=== PATIENT | male | born 1970 | race Hispanic/Latino ===

== ENCOUNTER 2017-10-12 16:47 | Inpatient (IN) | payer BC ==
--- NOTE | 2017-10-12 18:54 | CP.PCM.CON ---
History of Present Illness - History of Present Illness History of Present Illness: Infectious Disease Consultation: October 12, 2017 47 yo male initially seen in wound care center with Dr. Wright this afternoon and sent the patient for admission through the ER (patient did go home first to bring his car home and pack a few clothes and essentials). Concerns for left big toe erythema with increasing leukocytosis, increasing inflammatory numbers, and positive wound cultures. Patient was on PO Augmentin for 2 days. Left heel ulcer started about 2 weeks ago. The patient was seen by Dipak Healy MD but has not seen any doctors since Dr. Healy left the area about 1 1/2 years ago. He states that he still receives his medications by mail order however. He states that he takes insulin by injection of 30+ units taken before meals. He states his glucose levels are never less than 200. 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 Allergies: NKDA Social Hx: No tobacco History of EtOH use History of Heroin Abuse. Active Medications Acetaminophen (Tylenol 325mg Tab) 650 mg PO Q4H PRN PRN Reason: Fever >100.5 F Sodium Chloride (Sodium Chloride 0.9%) 1,000 mls @ 100 mls/hr IV .Q10H STA Stop: 10/13/17 07:53 Last Admin: 10/13/17 01:32 Dose: 100 mls/hr Family Hx: none given ROS: No fevers, chills, nausea, vomiting, diarrhea, headaches, dizziness, chest pain , abdominal pain, melena, hematuria, hematemesis, hematocheia, depression, anxiety. Meds Allergies/Adverse Reactions: Allergies Allergy/AdvReac Type Severity Reaction Status Date / Time No Known Allergies Allergy Verified 10/12/17 18:47 Physical Exam - Constitutional Appears: Non-toxic, No Acute Distress, Chronically Ill Additional comments: morbidly obese. - Head Exam Head Exam: ATRAUMATIC, NORMOCEPHALIC - Eye Exam Eye Exam: EOMI, PERRL Pupil Exam: NORMAL ACCOMODATION, PERRL - ENT Exam ENT Exam: Mucous Membranes Moist, Normal External Ear Exam, TM's Normal Bilaterally - Neck Exam Neck exam: Positive for: Full Rom, Normal Inspection - Respiratory Exam Respiratory Exam: Clear to Auscultation Bilateral, NORMAL BREATHING PATTERN. absent: Rales, Rhonchi, Wheezes - Cardiovascular Exam Cardiovascular Exam: REGULAR RHYTHM, RRR, +S1, +S2 - GI/Abdominal Exam GI & Abdominal Exam: Normal Bowel Sounds, Soft. absent: Distended, Tenderness - Extremities Exam Additional comments: left big toe with avulsion of nail. ulcer at tip of big toe. ulceration at left heel at least stage 3. - Neurological Exam Neurological exam: Alert, CN II-XII Intact, Oriented x3 - Psychiatric Exam Psychiatric exam: Normal Affect, Normal Mood - Skin Skin Exam: Intact, Normal Color Results - Labs Result Diagrams: 10/12/17 20:30 10/12/17 20:30 Assessment & Plan - Assessment and Plan (Free Text) Assessment: 47 yo male with erythema and worsening ulceration of the left big toe and to lesser extent left heel. Concerns for uncontrolled DM. Increasing inflammatory values from outpatient labs (ESR greater than 70 now) and moderate leukocytosis. Start IV Vancomycin and Zosyn for now. Closely monitor renal function. Periodic monitoring of ESR. Patient needs tighter control of diabetes mellitus. Check Hgb A1c as well. Wound care as per Dr. Wright. Thank you for allowing me to participate in the care of the patient, we will follow with you.
--- NOTE | 2017-10-12 19:36 | ED PDOC ---
Arrival/HPI <Nicholas Barone - Last Filed: 10/12/17 19:50> - General Historian: Patient - History of Present Illness Time/Duration: Other (see hpi) Context: Home <Mikayla Horner - Last Filed: 10/18/17 00:41> - General Chief Complaint: Lower Extremity Problem/Injury Time Seen by Provider: 10/12/17 19:11 - History of Present Illness Narrative History of Present Illness (Text): 10/12/17 19:33 This 47 yo male with pmh DM, presents to this ED c/o left great toe infection for a couple of days. Patient stated he developed an heel ulcer x 2 weeks ago. He also stated his toe nail came off yesterday. Patient was seen by Dr. Wright and Dr. Rocha, who recommended patient to be admitted in this hospital for IV antibiotic. Patient had been taking Augmentin x 2 days. Patient also noted his blood test was abnormal. He denies fever, or recent trauma. Patient denies other complains. (Mikayla Horner) Past Medical History - Provider Review Nursing Documentation Reviewed: Yes - Cardiac Hx Cardiac Disorders: No - Pulmonary Hx Respiratory Disorders: No - Neurological Hx Neurological Disorder: No - HEENT Hx HEENT Disorder: No - Renal Hx Renal Disorder: No - Endocrine/Metabolic Hx Endocrine Disorders: Yes Hx Diabetes Mellitus Type 2: Yes - Hematological/Oncological Hx Blood Disorders: No - Integumentary Hx Dermatological Disorder: No - Musculoskeletal/Rheumatological Hx Musculoskeletal Disorders: No - Gastrointestinal Hx Gastrointestinal Disorders: No - Genitourinary/Gynecological Hx Genitourinary Disorders: No - Psychiatric Hx Psychophysiologic Disorder: No Hx Substance Use: Yes (heroin) - Surgical History Hx Amputation: Yes (left index finger) <Mikayla Horner - Last Filed: 10/18/17 00:41> Family/Social History - Physician Review Nursing Documentation Reviewed: Yes Family/Social History: Other (noncontributory) Smoking Status: Never Smoked Hx Alcohol Use: Yes Frequency of alcohol use: Socially Hx Substance Use: Yes (heroin) <Mikayla Horner - Last Filed: 10/18/17 00:41> Allergies/Home Meds <Nicholas Barone - Last Filed: 10/12/17 19:50> <Horner,Nahim P - Last Filed: 10/18/17 00:41> Allergies/Adverse Reactions: Allergies No Known Allergies Allergy (Verified 10/12/17 18:47) Home Medications: Home Meds Medication Instructions Recorded Confirmed Empagliflozin [Jardiance] 25 mg PO DAILY 10/12/17 10/12/17 Insulin Detemir [Levemir] 45 unit SC DAILY 10/12/17 10/13/17 Sitagliptin Phos/Metformin HCl 1 each PO BID 10/12/17 10/13/17 [Janumet 50-1,000 mg Tablet] Review of Systems - Review of Systems Constitutional: Normal. absent: Fatigue, Weight Change, Fevers Eyes: Normal ENT: Normal Respiratory: Normal. absent: SOB, Cough Cardiovascular: Normal Gastrointestinal: Normal Genitourinary Male: Normal Musculoskeletal: Other (see hpi) Skin: Normal Neurological: Normal Endocrine: Normal Hemo/Lymphatic: Normal Psychiatric: Normal <Horner,Nahim P - Last Filed: 10/18/17 00:41> Physical Exam Temperature: Afebrile Blood Pressure: Normal Pulse: Regular Respiratory Rate: Normal Appearance: Positive for: Well-Appearing, Non-Toxic, Comfortable Pain Distress: None Mental Status: Positive for: Alert and Oriented X 3 - Systems Exam Head: Present: Atraumatic, Normocephalic Pupils: Present: PERRL Extroacular Muscles: Present: EOMI Conjunctiva: Present: Normal Mouth: Present: Moist Mucous Membranes Respiratory/Chest: Present: Clear to Auscultation, Good Air Exchange Cardiovascular: Present: Regular Rate and Rhythm, Normal S1, S2. No: Murmurs Abdomen: Present: Other (obese). No: Tenderness Back: Present: Normal Inspection Upper Extremity: Present: Normal Inspection, Normal ROM. No: Edema Lower Extremity: Present: Capillary Refill < 2 s, Other ((+) diabetic ulcer noted at base of left heel. no surrounding erythema. (+) left great toe nail plate surounding erythema, and ulcer at tip of left great toe.). No: Edema, CALF TENDERNESS Neurological: Present: GCS=15, CN II-XII Intact, Speech Normal, Motor Func Grossly Intact Skin: Present: Warm, Dry, Normal Color. No: Rashes Psychiatric: Present: Alert, Oriented x 3, Normal Insight, Normal Concentration <Horner,Nahim P - Last Filed: 10/18/17 00:41> Vital Signs Temp Pulse Resp BP Pulse Ox 10/12/17 22:45 98.4 F 80 20 132/90 96 10/12/17 18:41 97.9 F 84 18 108/72 96 Medical Decision Making <Nicholas Barone - Last Filed: 10/12/17 19:50> Re-evaluation Time: 21:35 Reassessment Condition: Re-examined, Improving,but remains with symptoms - Lab Interpretations I have reviewed the lab results: Yes Interpretation: Abnormal lab values - EKG Interpretation Interpreted by ED Physician: Yes (NSR @ [address] changes) Type: 12 lead EKG Comparison: No previous EKG avail. <Mikayla Horner - Last Filed: 10/18/17 00:41> ED Course and Treatment: 10/12/17 21:[address] King, who is covering for Dr. Darren ya. He reviewed labs, physical exam, VS. He agrees with plan for admission. He stated to admits under Dr. Banks. (Mikayla Horner) - Lab Interpretations Microbiology Results: Microbiology Results 10/12/17 20:30 Blood Blood Culture - Final NO GROWTH AFTER 5 DAYS 10/12/17 20:30 Blood Gram Stain - Final TEST NOT PERFORMED 10/12/17 19:30 Blood Blood Culture - Final NO GROWTH AFTER 5 DAYS 10/12/17 19:30 Blood Gram Stain - Final TEST NOT PERFORMED Lab Results: 10/12/17 20:30 10/12/17 20:30 Lab Results 10/12/17 20:30: pO2 51, VBG pH 7.38, VBG pCO2 50.0, VBG HCO3 29.6 H, VBG Total CO2 31.1 H, VBG O2 Sat (Calc) 88.6 H, VBG Base Excess 3.4 H, VBG Potassium 4.0, Sodium 139.0, Chloride 103.0, Glucose 106, Lactate 1.1, FiO2 21.0, Venous Blood Potassium 4.0 10/12/17 20:30: Sodium 140, Chloride 102, Potassium 3.8, Carbon Dioxide 28, Anion Gap 15, BUN 14, Creatinine 0.7 L, Est GFR ( Amer) > 60, Est GFR ( Non-Af Amer) > 60, Random Glucose 105, Calcium 10.2, Total Bilirubin 1.0, AST 38 , ALT 31, Alkaline Phosphatase 80, Total Protein 8.9 H, Albumin 4.4, Globulin 4.5, Albumin/Globulin Ratio 1.0 L 10/12/17 20:30: PT 12.9 H, INR 1.13 H, APTT 32.9 10/12/17 20:30: WBC 13.3 H, RBC 4.88, Hgb 13.8 L, Hct 42.7, MCV 87.5, MCH 28.3, MCHC 32.3, RDW 14.7 H, Plt Count 337, MPV 9.6, Gran % 71.8 H, Lymph % (Auto) 22.9, [place] % (Auto) 4.1, Eos % (Auto) 1.0 L, Baso % (Auto) 0.2, Gran # 9.56 H, Lymph # 3.0, [place] # 0.6, Eos # 0.1, Baso # 0.02 - RAD Interpretation Narrative RAD Interpretations (Text): 10/12/17 22:40 Chest x-rays: NAD (Mikayla Horner) Radiology Orders: 10/12/17 19:30 CHEST PORTABLE [RAD] Stat 10/12/17 19:32 FOOT LEFT 3 VIEWS ROUTINE [RAD] Stat - Medication Orders Current Medication Orders: Discontinued Medications Acetaminophen (Tylenol 325mg Tab) 650 mg PO Q4H PRN PRN Reason: Fever >100.5 F Home Med (Home Med) 1 unit PO DAILY ANDREW Last Admin: 10/14/17 09:05 Dose: 1 unit Piperacillin Sod/Tazobactam Sod (Zosyn 3.375 In Ns 100ml) 100 mls @ 200 mls/hr IVPB Q6 ANDREW PRN Reason: Protocol Stop: 10/13/17 00:29 Last Admin: 10/13/17 00:28 Dose: 200 mls/hr eMAR Start Stop Document 10/13/17 00:28 EVELIA (Rec: 10/13/17 00:29 EVELIA [id number]) Intravenous Solution Start Date 10/13/17 Start Time 00:28 End Date 10/13/17 End time 00:58 Total Infusion Time 30 Sodium Chloride (Sodium Chloride 0.9%) 1,000 mls @ 100 mls/hr IV .Q10H STA Stop: 10/13/17 07:53 Last Admin: 10/13/17 01:32 Dose: 100 mls/hr Comments: PREVIOUS IV DISCARDED & NEW TUBING APPLIED eMAR Start Stop Document 10/13/17 01:32 KTB (Rec: 10/13/17 01:33 KTB [id number]) Intravenous Solution Start Date 10/13/17 Start Time 01:32 Piperacillin Sod/Tazobactam Sod (Zosyn 3.375 In Ns 100ml) 100 mls @ 200 mls/hr IVPB Q6 ANDREW PRN Reason: Protocol Last Admin: 10/14/17 13:33 Dose: 200 mls/hr eMAR Start Stop Document 10/14/17 13:33 BIR (Rec: 10/14/17 13:33 BIR [id number]) Intravenous Solution Start Date 10/14/17 Start Time 13:33 End Date 10/14/17 End time 14:00 Total Infusion Time 27 Vancomycin HCl 1.5 gm/ Sodium (Chloride) 250 mls @ 167 mls/hr IVPB Q12H ANDREW PRN Reason: Protocol Last Admin: 10/13/17 03:56 Dose: 167 mls/hr eMAR Start Stop Document 10/13/17 03:56 KTB (Rec: 10/13/17 04:03 KTB [id number]) Intravenous Solution Start Date 10/13/17 Start Time 04:03 End Date 10/13/17 End time 05:33 Total Infusion Time 90 Vancomycin HCl 1.5 gm/ Sodium (Chloride) 500 mls @ 167 mls/hr IVPB Q12H ANDREW PRN Reason: Protocol Last Admin: 10/14/17 09:08 Dose: 167 mls/hr eMAR Start Stop Document 10/14/17 09:08 BIR (Rec: 10/14/17 09:08 [facility] [id number]) Intravenous Solution Start Date 10/14/17 Start Time 09:08 End Date 10/14/17 End time 12:30 Total Infusion Time 202 Cefepime HCl (Maxipime 1gm) 1 gm in 100 mls @ 100 mls/hr IVPB Q12 ANDREW PRN Reason: Protocol Last Admin: 10/14/17 21:26 Dose: 100 mls/hr eMAR Start Stop Document 10/14/17 21:26 ISAAC (Rec: 10/14/17 21:26 ISAAC [id number]) Intravenous Solution Start Date 10/14/17 Start Time 21:26 End Date 10/14/17 End time 22:26 Total Infusion Time 60 Insulin Detemir (Levemir) 45 unit SC DAILY [facility] Last Admin: 10/14/17 09:06 Dose: 45 unit MAR Blood Glucose Document 10/14/17 09:06 [facility] (Rec: 10/14/17 09:07 [facility] [id number]) Blood Glucose Finger Stick Blood Glucose (70-120) 135 Subcutaneous Administrations Document 10/14/17 09:06 [facility] (Rec: 10/14/17 09:07 [facility] [id number]) Charges for Administration # of Subcutaneous Administrations 1 Insulin Human Regular (Humulin R Med) 0 units SC [facility] PRN Reason: Protocol Last Admin: 10/15/17 07:45 Dose: Not Given Non-Admin Reason: Blood Sugar Parameter [facility] Blood Glucose Document 10/15/17 07:45 SML (Rec: 10/15/17 07:45 [facility] [id number]) Blood Glucose Finger Stick Blood Glucose (70-120) 123 Metformin HCl (Glucophage) 1,000 mg PO BID [facility] Last Admin: 10/14/17 17:35 Dose: 1,000 mg Non-Formulary Medication (Sitagliptin Phos/Metformin Hcl [Janumet 50-1,000 Mg Tablet]) 1 each PO BID [facility] Non-Formulary Medication (Empagliflozin [Jardiance]) 25 mg PO DAILY [facility] Last Admin: 10/13/17 09:23 Dose: Pneumococcal Polyvalent Vaccine (Pneumovax 23 Vaccine) 0.5 ml IM .ONCE ONE Stop: 10/13/17 03:20 Sitagliptin Phosphate (Januvia) 50 mg PO BID [facility] Last Admin: 10/14/17 17:35 Dose: 50 mg - PA / CONE TENDER / Resident Statement / has reviewed & agrees with the documentation as recorded. / has examined the patient and agrees with the treatment plan. <Nicholas Barone - Last Filed: 10/12/17 19:50> Disposition/Present on Arrival <Nicholas Barone - Last Filed: 10/12/17 19:50> - Present on Arrival Any Indicators Present on Arrival: No History of DVT/PE: No History of Uncontrolled Diabetes: No Urinary Catheter: No History of Decub. Ulcer: No History Surgical Site Infection Following: None - Disposition Have Diagnosis and Disposition been Completed?: Yes Disposition Time: 21:52 Patient Plan: Admission <Mikayla Horner - Last Filed: 10/18/17 00:41> - Disposition Diagnosis: Cellulitis, Failure of outpatient treatment Disposition: HOSPITALIZED Condition: STABLE
[2017-10-12] MEDS: Piperacillin/Tazobact 3.375 gm 100 ML IVPB SCH (20:30)
[2017-10-12 21:05] LABS: INR 1.13 (0.93-1.08); PARTIAL THROMBOPLASTIN TIME 32.9 Seconds (25.1-36.5); PROTHROMBIN TIME 12.9 SECONDS (9.4-12.5); VENOUS BLOOD GAS BASE EXCESS 3.4 mmol/L (0.0-2.0); VENOUS BLOOD GAS PO2 51 mm/Hg (30-55); VENOUS BLOOD PH 7.38 (7.32-7.43)
[2017-10-12 21:06] LABS: BASO # 0.02 K/mm3 (0.0-2.0); BASO % 0.2 % (0.0-3.0); EOS # 0.1 (0.0-0.7); GRAN # 9.56 (1.4-6.5); GRAN % 71.8 % (50.0-68.0); HEMOGLOBIN 13.8 g/dL (14.0-18.0); LYMPH % 22.9 % (22.0-35.0); MEAN CELL VOLUME 87.5 fl (80.0-105.0); MEAN CORPUSCULAR HEMOGLOBIN 28.3 pg (25.0-35.0); MEAN CORPUSCULAR HGB CONC 32.3 g/dl (31.0-37.0); MEAN PLATELET VOLUME 9.6 fl (7.0-11.0); MONO # 0.6 (0.1-0.6); MONO % 4.1 % (1.0-6.0); RBC 4.88 10^6/uL (3.5-6.1); RED CELL DISTRIBUTION WIDTH 14.7 % (11.5-14.5); WHITE BLOOD COUNT 13.3 10^3/ul (4.5-11.0)
[2017-10-12 21:13] LABS: ALBUMIN 4.4 g/dL (3.0-4.8); ALT/SGPT 31 U/L (7-56); AST/SGOT 38 U/L (17-59); BLOOD UREA NITROGEN 14 mg/dL (7-21); CALCIUM 10.2 mg/dL (8.4-10.5); GFR AFRICAN-AMERICAN > 60; GFR NON-AFRICAN AMERICAN > 60
[2017-10-12] MEDS: Sodium Chloride 0.9% 1,000 ML IV STA (21:30)
[2017-10-13] MEDS: Piperacillin/Tazobact 3.375 gm 100 ML IVPB SCH ×4 (00:28→17:02)
[2017-10-13] MEDS: Sodium Chloride 0.9% 1,000 ML IV STA (01:32)
[2017-10-13 03:18] VITALS: BMI 55.9
[2017-10-13] MEDS ORDERED: Influenza Vaccine 60 mcg/0.5 mL SYR (4YR UP) IM ONE (03:19)
[2017-10-13] MEDS ORDERED: Pneumococcal 23-Valent Vaccine IM ONE (03:19)
--- NOTE | 2017-10-13 08:16 | RAD ---
HISTORY: admission COMPARISON: No prior. FINDINGS: LUNGS: No active pulmonary disease. PLEURA: No significant pleural effusion identified, no pneumothorax apparent. CARDIOVASCULAR: Normal. OSSEOUS STRUCTURES: No significant abnormalities. VISUALIZED UPPER ABDOMEN: Normal. OTHER FINDINGS: None. IMPRESSION: No active disease.
--- NOTE | 2017-10-13 08:18 | RAD ---
PROCEDURE: Left Foot Radiographs. HISTORY: great toe infection COMPARISON: None. FINDINGS: BONES: Normal. No fracture. JOINTS: Normal. SOFT TISSUES: Normal. OTHER FINDINGS: None. IMPRESSION: No evidence of osteomyelitis
[2017-10-13] MEDS: Insulin Detemir 100 units/ml Vial (Levemir) SC SCH (09:20)
[2017-10-13] MEDS ORDERED: Non Formulary Medication (Sitagliptin Phos/Metformin Hcl [Janumet 50-1,000 Mg Tablet] 1 EA PO SCH (10:00)
[2017-10-13] MEDS: Vancomycin 1.5 GM in Sodium Chloride 0.9% 500 ML IVPB SCH ×2 (11:19→21:58)
[2017-10-13] MEDS: Insulin Reg-MEDIUM-Coverage SC SCH ×3 (12:15→22:16)
--- NOTE | 2017-10-13 12:35 | CP.PCM.CON ---
History of Present Illness - History of Present Illness History of Present Illness: 47 year old male with PMHx DM seen on floors after being sent through the ED from wound care center for infected left foot wounds. Patient is AAO x 3 and NAD resting comfortably in bed at time of visit. He denies any acute overnight events or any significant health changes since he was last seen in the wound care center yesterday. Denies any new pedal complaints. Denies N/V/F/C/CP/SOB/D/ posterior calf pain when squeezed Review of Systems - Review of Systems Review of Systems: ROS as per HPI Past Patient History - Past Social History Smoking Status: Never Smoked - CARDIAC Hx Cardiac Disorders: No - PULMONARY Hx Respiratory Disorders: No - NEUROLOGICAL Hx Neurological Disorder: No - HEENT Hx HEENT Problems: No - RENAL Hx Chronic Kidney Disease: No - ENDOCRINE/METABOLIC Hx Endocrine Disorders: Yes Hx Diabetes Mellitus Type 2: Yes - HEMATOLOGICAL/ONCOLOGICAL Hx Blood Disorders: No - INTEGUMENTARY Hx Dermatological Problems: No Other/Comment: large L leg laceration 10/2016 - MUSCULOSKELETAL/RHEUMATOLOGICAL Hx Musculoskeletal Disorders: No Hx Falls: No - GASTROINTESTINAL Hx Gastrointestinal Disorders: No - GENITOURINARY/GYNECOLOGICAL Hx Genitourinary Disorders: No - PSYCHIATRIC Hx Psychophysiologic Disorder: No Hx Substance Use: Yes (marijuana occassionally) - SURGICAL HISTORY Hx Surgeries: Yes Hx Amputation: Yes (left index finger) Meds Allergies/Adverse Reactions: Allergies Allergy/AdvReac Type Severity Reaction Status Date / Time No Known Allergies Allergy Verified 10/12/17 18:47 - Medications Medications: Current Medications Acetaminophen (Tylenol 325mg Tab) 650 mg PO Q4H PRN PRN Reason: Fever >100.5 F Home Med (Home Med) 1 unit PO DAILY ANDREW Piperacillin Sod/Tazobactam Sod (Zosyn 3.375 In Ns 100ml) 100 mls @ 200 mls/hr IVPB Q6 ANDREW PRN Reason: Protocol Last Admin: 10/13/17 05:43 Dose: 200 mls/hr Vancomycin HCl 1.5 gm/ Sodium (Chloride) 500 mls @ 167 mls/hr IVPB Q12H ANDREW PRN Reason: Protocol Last Admin: 10/13/17 11:19 Dose: 167 mls/hr Insulin Detemir (Levemir) 45 unit SC DAILY ANDREW Last Admin: 10/13/17 09:20 Dose: 45 unit Insulin Human Regular (Humulin R Med) 0 units SC [facility] PRN Reason: Protocol Metformin HCl (Glucophage) 1,000 mg PO BID [facility] Last Admin: 10/13/17 09:20 Dose: 1,000 mg Sitagliptin Phosphate (Januvia) 50 mg PO BID [facility] Last Admin: 10/13/17 09:20 Dose: 50 mg Physical Exam - Constitutional Appears: Well, Non-toxic, No Acute Distress - Extremities Exam Additional comments: LLE focused exam: Vasc: DP/PT pulses faintly palpable. CFT < 3 seconds to all digits. Skin temperature warm to warm from proximal to distal. Minimal edema noted Neuro: Epicritic and protective sensation grossly diminished Derm: Two ulcerations noted to left foot. Heel ulceration noted to have granular base with periwound erythema and no other clinical signs of infection at this time. Hallux ulceration fibrogranular with missing hallucal nail. Also has periwound erythema and no other clinical signs of infection noted MSK: No POP to ulceration sites - Neurological Exam Neurological exam: Alert, Oriented x3 - Psychiatric Exam Psychiatric exam: Normal Affect, Normal Mood Results - Vital Signs Recent Vital Signs: Last Vital Signs Temp 97.8 F 10/13/17 09:09 Pulse 78 10/13/17 09:09 Resp 18 10/13/17 09:09 BP 119/79 10/13/17 09:09 Pulse Ox 96 10/13/17 09:09 - Labs Result Diagrams: 10/12/17 20:30 10/12/17 20:30 Labs: Laboratory Results - last 24 hr 10/13/17 10/13/17 10/13/17 05:19 09:16 11:27 POC Glucose (mg/dL) 182 H 145 H 151 H Assessment & Plan - Assessment and Plan (Free Text) Assessment: 47 year old male seen at bedside for infected ulcerations to left foot Plan: Patient seen and evaluated with attending Dr. Wright Afebrile WBC 13.3 from 14.5 on 10/10/17 Wound cx left foot: Stentrophomonas Maltophilia, Coag neg staph Foot xray 10/12: No evidence of OM F/u MRI Continue IV abx per ID Wound dressed with DSD No plan for surgical intervention at this time Podiatry will continue to follow while patient in house - Date & Time Date: 10/13/17 Time: 12:48
--- NOTE | 2017-10-13 17:59 | CARD ---
APPROVED REPORT EKG Measurement Heart [id number] <Conclusion> Normal sinus rhythm Nonspecific ST and T wave abnormality Abnormal ECG
[2017-10-13 19:14] VITALS: RESP 20
--- NOTE | 2017-10-13 20:25 | MRI ---
EXAM: MR Left Lower Extremity Without Intravenous Contrast, Foot EXAM DATE/TIME: 10/13/2017 12:30 PM CLINICAL HISTORY: The patient age is 47 years old and is male; Signs and symptoms; Other: ? Osteo left foot; Additional info: R/O om, heel wound and hallux wound Facility exam id and description: Mri footwoconl foot w/o contrast left TECHNIQUE: Multiplanar magnetic resonance images of the left foot without intravenous contrast. COMPARISON: MR - FOOT W/O CONTRAST LEFT 2017-03-07 16:19 FINDINGS: LIGAMENTS: Medial collateral: Limited evaluation due to partial failure of fat saturation. Lateral collateral: Limited evaluation due to partial failure of fat saturation. Lisfranc: No visualized acute tear. TENDONS: Flexor: No visualized acute tear. Extensor: No visualized acute tear. Peroneal: There is a small amount of fluid surrounding the peroneus longus tendon distally, consistent with tenosynovitis. Tibialis anterior:No visualized acute tear. Tibialis posterior:There is minimal fluid adjacent to the posterior tibialis tendon distally, without a visualized acute tear. Muscles: Muscle edema is also visualized, suggestive of muscle strain or myositis, or denervation edema. Muscle atrophy is identified. Fluid: Minimal effusions are seen at the first and second MTP joints. Sinus tarsi: Edema is identified within the sinus tarsi. Plantar fascia: No visualized acute tear. Bones/joints: Edema is identified within the distal first phalanx, suspicious for osteomyelitis. Edema is also identified within the fourth metatarsal head, likely reactive to arthropathy or due to osteomyelitis. These areas of marrow edema are new compared to the prior study. Calcaneal spurs are visualized. There is mild heterogeneous signal intensity within the calcaneus, without definitive marrow edema. Soft tissues: There is soft tissue swelling of the ankle and dorsal foot, suggestive of cellulitis in the appropriate setting. Mild heel pad edema is also visualized. IMPRESSION: 1. There is soft tissue swelling of the ankle and dorsal foot, suggestive of cellulitis in the appropriate setting. Mild heel pad edema is also visualized. 2. Muscle edema is visualized, representing muscle strain, myositis, or denervation edema. 3. Edema is identified within the distal first phalanx, suspicious for osteomyelitis. Edema is also identified within the fourth metatarsal head, likely reactive to arthropathy or due to osteomyelitis. These areas of marrow edema are new compared to the prior study. 4. There is mild tenosynovitis of the peroneus longus tendon. 5. Additional findings described above.
--- NOTE | 2017-10-13 21:13 | HP ---
HISTORY OF PRESENT ILLNESS: I was called by Dr. Wright, the chronometer assembler, to put this young man on my service because he has a bad left great toe. He failed outpatient treatment with antibiotics and now he is being put in for IV antibiotics and for I and D. He also developed a heel ulcer 2 weeks ago. He has been having a rough time with healing. He was on Augmentin on the outpatient, did not get better. PAST MEDICAL HISTORY: Diabetes, skin and toe infections, and cellulitises. He has a history of substance abuse, heroin. PAST SURGICAL HISTORY: He had an amputation of the left index finger. SOCIAL HISTORY: He never smoked, drinks alcohol, heroin. ALLERGIES: No known drug reactions. MEDICATIONS: He is on Jardiance, Levemir, and Janumet. I will put him on his medications. REVIEW OF SYSTEMS: No acute fevers or weight changes. No acute vision or hearing changes. No sore throat. No neck pain. No chest pain or palpitations or shortness of breath or coughing. No abdominal pain. No nausea, vomiting, constipation, diarrhea. No numbness or tingling. No nervousness or anxiety. Just the toe issue. PHYSICAL EXAMINATION: VITAL SIGNS: He has a 97.9 temperature, 84 pulse, 18 respiratory rate, 108/72 blood pressure, and 96% O2 sat on room air. GENERAL: He is well appearing, nontoxic, comfortable, alert and oriented x3. HEENT: Head is atraumatic and normocephalic. Extraocular muscles are intact. Pupils are equal and reactive to light and accommodation. Throat is moist. NECK: Supple. HEART: Regular rate. Normal S1 and S2. LUNGS: Clear to auscultation. No wheezes. No rhonchi. No rales. ABDOMEN: Soft, obese, nontender. Positive bowel sounds. No guarding. No rebound. No CVA tenderness. EXTREMITIES: His extremities have trace edema. He has a diabetic ulcer of the left heel. His left great toe, erythematous with the tip of the great toe is red and inflamed. It is worsened after being on Augmentin. He failed outpatient treatment. NEUROLOGIC: GCS is 15. Cranial nerves II through XII grossly intact. Normal speech. Besides the toe and the heel, the skin is pretty much intact. Alert, oriented x3. Thyroid is midline. No palpable lymphadenopathy appreciated. He had multiple tests. LABORATORY DATA: He has a 140 sodium, potassium 3.8, BUN 14, creatinine 0.7. GFR is greater than 60. Last blood sugar was 145. Calcium 7.2. Total bili is 1, AST is 38, ALT is 31, alkaline phosphatase is 80, total protein is 8.9. Lactate was 1.1. He has a 1.13 INR. His white count is 13.3, hemoglobin 13.8, hematocrit 42.7, platelets are 337. He has a chest x-ray; no acute disease. He had a foot x-ray; no evidence of osteomyelitis. He is being seen by Infectious Disease, Dr. Rocha and Dr. Wright, the chronometer assembler. He failed outpatient treatment for nonhealing diabetic foot ulcer and heel ulcer, toe ulcer, and we will watch him very closely. We will check his labs tomorrow. Juanpablo Banks DO
--- NOTE | 2017-10-13 23:00 | CP.PCM.PN ---
Subjective - Date & Time of Evaluation Date of Evaluation: 10/13/17 Time of Evaluation: 22:52 - Subjective Subjective: Infectious Disease Follow Up: October 13, 2017 47 yo male initially seen in wound care center with Dr. Wright this afternoon and sent the patient for admission through the ER (patient did go home first to bring his car home and pack a few clothes and essentials). Concerns for left big toe erythema with increasing leukocytosis, increasing inflammatory numbers, and positive wound cultures. Patient was on PO Augmentin for 2 days. Left heel ulcer started about 2 weeks ago. The patient was seen by Dipak Healy MD but has not seen any doctors since Dr. Healy left the area about 1 1/2 years ago. He states that he still receives his medications by mail order however. He states that he takes insulin by injection of 30+ units taken before meals. He states his glucose levels are never less than 200. Objective - Vital Signs/Intake and Output Vital Signs (last 24 hours): Temp Pulse Resp BP Pulse Ox 98 F 75 20 108/59 L 98 10/13/17 16:00 10/13/17 16:00 10/13/17 16:00 10/13/17 16:00 10/13/17 16:00 Intake and Output: 10/13/17 10/14/17 18:59 06:59 Intake Total 1300 540 Output Total 400 Balance 1300 140 - Medications Medications: Current Medications Acetaminophen (Tylenol 325mg Tab) 650 mg PO Q4H PRN PRN Reason: Fever >100.5 F Home Med (Home Med) 1 unit PO DAILY [facility] Piperacillin Sod/Tazobactam Sod (Zosyn 3.375 In Ns 100ml) 100 mls @ 200 mls/hr IVPB Q6 [facility] PRN Reason: Protocol Last Admin: 10/13/17 17:02 Dose: 200 mls/hr Vancomycin HCl 1.5 gm/ Sodium (Chloride) 500 mls @ 167 mls/hr IVPB Q12H [facility] PRN Reason: Protocol Last Admin: 10/13/17 21:58 Dose: 167 mls/hr Insulin Detemir (Levemir) 45 unit SC DAILY [facility] Last Admin: 10/13/17 09:20 Dose: 45 unit Insulin Human Regular (Humulin R Med) 0 units SC ACHS [facility] PRN Reason: Protocol Last Admin: 10/13/17 22:16 Dose: Not Given Metformin HCl (Glucophage) 1,000 mg PO BID [facility] Last Admin: 10/13/17 17:04 Dose: 1,000 mg Sitagliptin Phosphate (Januvia) 50 mg PO BID [facility] Last Admin: 10/13/17 17:04 Dose: 50 mg - Labs Labs: PT 12.9 SECONDS (9.4-12.5) H 10/12/17 20:30 INR 1.13 (0.93-1.08) H 10/12/17 20:30 APTT 32.9 Seconds (25.1-36.5) 10/12/17 20:30 - Constitutional Appears: Non-toxic, No Acute Distress, Chronically Ill - Head Exam Head Exam: ATRAUMATIC, NORMOCEPHALIC - Eye Exam Eye Exam: EOMI, PERRL Pupil Exam: NORMAL ACCOMODATION, PERRL - ENT Exam ENT Exam: Mucous Membranes Moist, Normal External Ear Exam, TM's Normal Bilaterally - Neck Exam Neck Exam: Full ROM, Normal Inspection - Respiratory Exam Respiratory Exam: Clear to Ausculation Bilateral, NORMAL BREATHING PATTERN. absent: Rales, Rhonchi, Wheezes - Cardiovascular Exam Cardiovascular Exam: REGULAR RHYTHM, RRR, +S1, +S2 - GI/Abdominal Exam GI & Abdominal Exam: Soft, Normal Bowel Sounds. absent: Distended, Tenderness - Extremities Exam Additional comments: left big toe with avulsion of nail. ulcer at tip of big toe. Decreased erythema of the left big toe. Ulceration at left heel at least stage 3. Heel ulcer with granulation. - Neurological Exam Neurological Exam: Alert, Awake, CN II-XII Intact, Oriented x3 - Psychiatric Exam Psychiatric exam: Normal Affect, Normal Mood - Skin Skin Exam: Intact, Normal Color Assessment and Plan - Assessment and Plan (Free Text) Assessment: 47 yo male with erythema and worsening ulceration of the left big toe and to lesser extent left heel. Concerns for uncontrolled DM. Increasing inflammatory values from outpatient labs (ESR greater than 70 now) and moderate leukocytosis. Start IV Vancomycin and Zosyn for now. Closely monitor renal function. Periodic monitoring of ESR. Patient needs tighter control of diabetes mellitus. Check Hgb A1c as well. Wound care as per Dr. Wright. 10/10/2017 culture showing stenotrophomonas. Thank you for allowing me to participate in the care of the patient, we will follow with you.
[2017-10-14] MEDS: Piperacillin/Tazobact 3.375 gm 100 ML IVPB SCH ×3 (01:07→13:33)
[2017-10-14 06:53] LABS: HEMOGLOBIN 12.1 g/dL (14.0-18.0); MEAN CELL VOLUME 87.5 fl (80.0-105.0); MEAN CORPUSCULAR HEMOGLOBIN 27.6 pg (25.0-35.0); MEAN CORPUSCULAR HGB CONC 31.5 g/dl (31.0-37.0); MEAN PLATELET VOLUME 9.4 fl (7.0-11.0); RBC 4.39 10^6/uL (3.5-6.1); RED CELL DISTRIBUTION WIDTH 14.8 % (11.5-14.5)
[2017-10-14 06:57] LABS: ALBUMIN 3.8 g/dL (3.0-4.8); ALT/SGPT 31 U/L (7-56); AST/SGOT 43 U/L (17-59); BLOOD UREA NITROGEN 10 mg/dL (7-21); GFR AFRICAN-AMERICAN > 60; GFR NON-AFRICAN AMERICAN > 60
[2017-10-14] MEDS: Insulin Reg-MEDIUM-Coverage SC SCH ×2 (08:31→13:32)
[2017-10-14] MEDS: Insulin Detemir 100 units/ml Vial (Levemir) SC SCH (09:06)
[2017-10-14] MEDS: Vancomycin 1.5 GM in Sodium Chloride 0.9% 500 ML IVPB SCH (09:08)
--- NOTE | 2017-10-14 12:47 | CP.PCM.PN ---
Subjective - Date & Time of Evaluation Date of Evaluation: 10/14/17 Time of Evaluation: 12:43 - Subjective Subjective: 47 year old male with PMHx DM seen at bedside for left heel ulceration and hallux ulceration with OM of the hallux. Patient is AAO x 3 and NAD resting comfortably in bed at time of visit. He denies any acute overnight events. Denies any new pedal complaints. Denies N/V/F/C/CP/SOB/D/posterior calf pain when squeezed Objective - Vital Signs/Intake and Output Vital Signs (last 24 hours): Temp Pulse Resp BP Pulse Ox 98 F 75 20 108/59 L 98 10/13/17 16:00 10/13/17 16:00 10/13/17 16:00 10/13/17 16:00 10/13/17 16:00 Intake and Output: 10/14/17 10/14/17 06:59 18:59 Intake Total 1240 Output Total 400 Balance 840 - Medications Medications: Current Medications Acetaminophen (Tylenol 325mg Tab) 650 mg PO Q4H PRN PRN Reason: Fever >100.5 F Home Med (Home Med) 1 unit PO DAILY [facility] Last Admin: 10/14/17 09:05 Dose: 1 unit Piperacillin Sod/Tazobactam Sod (Zosyn 3.375 In Ns 100ml) 100 mls @ 200 mls/hr IVPB Q6 [facility]W PRN Reason: Protocol Last Admin: 10/14/17 06:00 Dose: 200 mls/hr Vancomycin HCl 1.5 gm/ Sodium (Chloride) 500 mls @ 167 mls/hr IVPB Q12H [facility]W PRN Reason: Protocol Last Admin: 10/14/17 09:08 Dose: 167 mls/hr Insulin Detemir (Levemir) 45 unit SC DAILY [facility] Last Admin: 10/14/17 09:06 Dose: 45 unit Insulin Human Regular (Humulin R Med) 0 units SC ACHS [facility] PRN Reason: Protocol Last Admin: 10/14/17 08:31 Dose: Not Given Metformin HCl (Glucophage) 1,000 mg PO BID [facility] Last Admin: 10/14/17 09:05 Dose: 1,000 mg Sitagliptin Phosphate (Januvia) 50 mg PO BID [facility] Last Admin: 10/14/17 09:06 Dose: 50 mg - Labs Labs: 10/14/17 05:30 10/14/17 05:30 PT 12.9 SECONDS (9.4-12.5) H 10/12/17 20:30 INR 1.13 (0.93-1.08) H 10/12/17 20:30 APTT 32.9 Seconds (25.1-36.5) 10/12/17 20:30 - Constitutional Appears: Well, Non-toxic, No Acute Distress - Extremities Exam Additional comments: LLE focused exam: Vasc: DP/PT pulses faintly palpable. CFT < 3 seconds to all digits. Skin temperature warm to warm from proximal to distal. Minimal edema noted to periwound area Neuro: Epicritic and protective sensation grossly diminished Derm: Two ulcerations noted to left foot. Heel ulceration noted to have granular base with periwound erythema and no other clinical signs of infection at this time. Hallux ulceration fibrogranular with missing hallucal nail. Also has periwound erythema and no other clinical signs of infection noted MSK: No POP to ulceration sites - Neurological Exam Neurological Exam: Alert, Awake, Oriented x3 - Psychiatric Exam Psychiatric exam: Normal Affect, Normal Mood Assessment and Plan - Assessment and Plan (Free Text) Assessment: 47 year old male with PMHx DM seen at bedside for left heel ulceration and hallux ulceration with OM of the hallux. Plan: Patient seen and evaluated at bedside with attending Dr. Wright Afebrile, WBC 12.0 from 13.3 yesterday L foot xray 10/12: No evidence of OM L foot MRI 10/13: Edema identified within the distal first phalanx, suspicious for osteomyelitis. Edema is also identified within the fourth metatarsal head, likely reactive to arthropathy or due to osteomyelitis Informed patient that he will need 4-6 weeks IV abx as an outpatient; patient demonstrated understanding PICC line insertion ordered Continue inpatient abx per ID Wounds dressed with optifoam and DSD Podiatry will continue to follow while patient in house
--- NOTE | 2017-10-14 13:13 | PN ---
DATE: SUBJECTIVE: Mr. Gallegos is sitting up in bed. He is feeling fairly well. The foot is bandaged. He was dealing with a left big toe cellulitis. The MRI shows possible osteomyelitis. He is on IV antibiotics for Infectious Disease, and he is being seen by Podiatry. PHYSICAL EXAMINATION VITAL SIGNS: Temperature 98, pulse 75 , blood pressure 108/59, respiratory rate 20, and 90% O2 saturation on room air. He is alert and comfortable. He still has a little bit of pain but not bad, it is bandaged. He is eating well, slept fairly well. HEAD: Atraumatic and normocephalic. HEART: Regular rate. LUNGS: Clear to auscultation. ABDOMEN: Obese morbidly. Soft and nontender. Positive bowel sounds. EXTREMITIES: Left foot is bandaged. Not much edema. LABORATORY DATA: He has sodium 138, potassium 3.9, BUN 10, creatinine 0.7, GFR is greater than 60, sugar is 120, calcium of 9, total bilirubin is 1, AST is 43, ALT is 31, alkaline phos is 65, total protein is 7.1. INR is 1.13. His white count is down to 12, hemoglobin 12.1, hematocrit 30.4, platelets are 284. He is being seen by Infectious Disease, also by Podiatry. ASSESSMENT AND PLAN: Continue aggressive treatment and care. There is also going to be an incision and drainage of the foot. We will see what Podiatry wants to do, but we are going to continue with intravenous antibiotics and to consider his toe osteomyelitis. He is going to be on intravenous antibiotics for 4 to 6 weeks. We will check his labs tomorrow, encourage him to get out of bed to chair, and he is on metformin, insulin coverage, Januvia, Levemir, intravenous fluids, Tylenol, vancomycin, and Zosyn. Juanpablo Banks DO
[2017-10-14 15:38] VITALS: BP 124/77; PULSE 78; TEMP 97.8; O2SAT 96
--- NOTE | 2017-10-14 18:22 | RAD ---
HISTORY: PICC PLACEMENT COMPARISON: Comparison made with prior chest radiograph 10/12/2017 FINDINGS: Interval placement right-sided PICC line the tip of which lies in the SVC. . LUNGS: No active pulmonary disease. PLEURA: Of pneumothorax or effusion. . CARDIOVASCULAR: Normal. OSSEOUS STRUCTURES: No significant abnormalities. VISUALIZED UPPER ABDOMEN: Normal. OTHER FINDINGS: None. IMPRESSION: Interval placement right-sided PICC line with the tip in the SVC. No evidence of pneumothorax. . No infiltrate.
--- NOTE | 2017-10-14 21:51 | CP.PCM.PN ---
Subjective - Date & Time of Evaluation Date of Evaluation: 10/14/17 Time of Evaluation: 19:44 - Subjective Subjective: Infectious Disease Follow Up: October 14, 2017 47 yo male initially seen in wound care center with Dr. Wright this afternoon and sent the patient for admission through the ER (patient did go home first to bring his car home and pack a few clothes and essentials). Concerns for left big toe erythema with increasing leukocytosis, increasing inflammatory numbers, and positive wound cultures. Patient was on PO Augmentin for 2 days. Left heel ulcer started about 2 weeks ago. The patient was seen by Dipak Healy MD but has not seen any doctors since Dr. Healy left the area about 1 1/2 years ago. He states that he still receives his medications by mail order however. He states that he takes insulin and metformin. He states his glucose levels are never less than 200. Objective - Vital Signs/Intake and Output Vital Signs (last 24 hours): Temp Pulse Resp BP Pulse Ox 97.8 F 78 20 124/77 96 10/14/17 06:00 10/14/17 06:00 10/14/17 06:00 10/14/17 06:00 10/14/17 06:00 - Medications Medications: Current Medications Acetaminophen (Tylenol 325mg Tab) 650 mg PO Q4H PRN PRN Reason: Fever >100.5 F Home Med (Home Med) 1 unit PO DAILY [facility] Last Admin: 10/14/17 09:05 Dose: 1 unit Cefepime HCl (Maxipime 1gm) 1 gm in 100 mls @ 100 mls/hr IVPB Q12 [facility] PRN Reason: Protocol Last Admin: 10/14/17 21:26 Dose: 100 mls/hr Insulin Detemir (Levemir) 45 unit SC DAILY [facility] Last Admin: 10/14/17 09:06 Dose: 45 unit Insulin Human Regular (Humulin R Med) 0 units SC ACHS [facility]W PRN Reason: Protocol Last Admin: 10/14/17 13:32 Dose: Not Given Metformin HCl (Glucophage) 1,000 mg PO BID [facility] Last Admin: 10/14/17 17:35 Dose: 1,000 mg Sitagliptin Phosphate (Januvia) 50 mg PO BID [facility] Last Admin: 10/14/17 17:35 Dose: 50 mg - Labs Labs: 10/14/17 05:30 10/14/17 05:30 PT 12.9 SECONDS (9.4-12.5) H 10/12/17 20:30 INR 1.13 (0.93-1.08) H 10/12/17 20:30 APTT 32.9 Seconds (25.1-36.5) 10/12/17 20:30 - Constitutional Appears: Non-toxic, No Acute Distress, Chronically Ill - Head Exam Head Exam: ATRAUMATIC, NORMOCEPHALIC - Eye Exam Eye Exam: EOMI, PERRL Pupil Exam: NORMAL ACCOMODATION, PERRL - ENT Exam ENT Exam: Mucous Membranes Moist, Normal External Ear Exam, TM's Normal Bilaterally - Neck Exam Neck Exam: Full ROM, Normal Inspection - Respiratory Exam Respiratory Exam: Clear to Ausculation Bilateral, NORMAL BREATHING PATTERN. absent: Rales, Rhonchi, Wheezes - Cardiovascular Exam Cardiovascular Exam: REGULAR RHYTHM, RRR, +S1, +S2 - GI/Abdominal Exam GI & Abdominal Exam: Soft, Normal Bowel Sounds. absent: Distended, Tenderness - Extremities Exam Additional comments: left big toe with avulsion of nail. ulcer at tip of big toe. Decreased erythema of the left big toe. Ulceration at left heel at least stage 3. Heel ulcer with granulation. - Neurological Exam Neurological Exam: Alert, Awake, CN II-XII Intact, Oriented x3 - Psychiatric Exam Psychiatric exam: Normal Affect, Normal Mood - Skin Skin Exam: Intact, Normal Color Assessment and Plan - Assessment and Plan (Free Text) Assessment: 47 yo male with erythema and worsening ulceration of the left big toe and to lesser extent left heel. Concerns for uncontrolled DM. Increasing inflammatory values from outpatient labs (ESR greater than 70 now) and moderate leukocytosis. Start IV Vancomycin and Zosyn for now. Closely monitor renal function. Periodic monitoring of ESR. Patient needs tighter control of diabetes mellitus. Check Hgb A1c as well. Wound care as per Dr. Wright. 10/10/2017 culture showing stenotrophomonas. Will give 6 weeks of IV Cefepime. Discussed details of diagnosis and treatment with the patient today. May consider addition of Cipro 500mg PO BID as well for 4 weeks. Thank you for allowing me to participate in the care of the patient, we will follow with you.
[2017-10-14] MEDS ORDERED: Cefepime 1gm in NS 100ml 1 GM/100 ML BAG IVPB SCH (22:00)
[2017-10-15 07:32] LABS: HEMOGLOBIN 12.2 g/dL (14.0-18.0); MEAN CELL VOLUME 87.4 fl (80.0-105.0); MEAN CORPUSCULAR HEMOGLOBIN 27.5 pg (25.0-35.0); MEAN CORPUSCULAR HGB CONC 31.5 g/dl (31.0-37.0); RBC 4.43 10^6/uL (3.5-6.1); WHITE BLOOD COUNT 9.9 10^3/ul (4.5-11.0)
[2017-10-15 07:33] LABS: MEAN PLATELET VOLUME 9.7 fl (7.0-11.0)
[2017-10-15] MEDS: Insulin Reg-MEDIUM-Coverage SC SCH (07:45)
[2017-10-15 09:21] LABS: ALB/GLOB RATIO 1.1 (1.1-1.8); ALBUMIN 3.8 g/dL (3.0-4.8); ALT/SGPT 43 U/L (7-56); AST/SGOT 32 U/L (17-59); BLOOD UREA NITROGEN 9 mg/dL (7-21); CALCIUM 9.3 mg/dL (8.4-10.5); GFR AFRICAN-AMERICAN > 60; GFR NON-AFRICAN AMERICAN > 60
--- NOTE | 2017-10-15 16:35 | CP.PCM.PN ---
Subjective - Date & Time of Evaluation Date of Evaluation: 10/15/17 Time of Evaluation: 08:25 - Subjective Subjective: Infectious Disease Follow Up: October 15, 2017 47 yo male initially seen in wound care center with Dr. Wright this afternoon and sent the patient for admission through the ER (patient did go home first to bring his car home and pack a few clothes and essentials). Concerns for left big toe erythema with increasing leukocytosis, increasing inflammatory numbers, and positive wound cultures. Patient was on PO Augmentin for 2 days. Left heel ulcer started about 2 weeks ago. The patient was seen by Dipak Healy MD but has not seen any doctors since Dr. Healy left the area about 1 1/2 years ago. He states that he still receives his medications by mail order however. He states that he takes insulin and metformin. He states his glucose levels are never less than 200. Osteomyelitis on MRI. For home IV infusion of antibiotics (Cefepime) for coverage. ESR on 10/10/2017 was 70. Objective - Vital Signs/Intake and Output Vital Signs (last 24 hours): Temp Pulse Resp BP Pulse Ox 97.8 F 78 20 124/77 96 10/14/17 06:00 10/14/17 06:00 10/14/17 06:00 10/14/17 06:00 10/14/17 06:00 Intake and Output: 10/15/17 10/15/17 06:59 18:59 Intake Total 1000 Balance 1000 - Labs Labs: 10/15/17 06:00 10/15/17 06:00 PT 12.9 SECONDS (9.4-12.5) H 10/12/17 20:30 INR 1.13 (0.93-1.08) H 10/12/17 20:30 APTT 32.9 Seconds (25.1-36.5) 10/12/17 20:30 - Constitutional Appears: Non-toxic, No Acute Distress, Chronically Ill - Head Exam Head Exam: ATRAUMATIC, NORMOCEPHALIC - Eye Exam Eye Exam: EOMI, PERRL Pupil Exam: NORMAL ACCOMODATION, PERRL - ENT Exam ENT Exam: Mucous Membranes Moist, Normal External Ear Exam, TM's Normal Bilaterally - Neck Exam Neck Exam: Full ROM, Normal Inspection - Respiratory Exam Respiratory Exam: Clear to Ausculation Bilateral, NORMAL BREATHING PATTERN. absent: Rales, Rhonchi, Wheezes - Cardiovascular Exam Cardiovascular Exam: REGULAR RHYTHM, RRR, +S1, +S2 - GI/Abdominal Exam GI & Abdominal Exam: Soft, Normal Bowel Sounds. absent: Distended, Tenderness - Extremities Exam Extremities Exam: Full ROM Additional comments: left big toe with avulsion of nail. ulcer at tip of big toe. Decreased erythema of the left big toe. Ulceration at left heel at least stage 3. Heel ulcer with granulation. - Neurological Exam Neurological Exam: Alert, Awake, CN II-XII Intact, Oriented x3 - Psychiatric Exam Psychiatric exam: Normal Affect, Normal Mood Assessment and Plan - Assessment and Plan (Free Text) Assessment: 47 yo male with erythema and worsening ulceration of the left big toe and to lesser extent left heel. Concerns for uncontrolled DM. Increasing inflammatory values from outpatient labs (ESR greater than 70 now) and moderate leukocytosis. Start IV Vancomycin and Zosyn for now. Closely monitor renal function. Periodic monitoring of ESR. Patient needs tighter control of diabetes mellitus. Check Hgb A1c as well. Wound care as per Dr. Wright. 10/10/2017 culture showing stenotrophomonas. Will give 6 weeks of IV Cefepime. Discussed details of diagnosis and treatment with the patient today. May consider addition of Cipro 500mg PO BID as well for 4 weeks. Thank you for allowing me to participate in the care of the patient, we will follow in the outpatient setting.
--- NOTE | 2017-10-16 03:11 | DS ---
HISTORY OF PRESENT ILLNESS: I saw Mr. Gallegos sitting out of bed to chair, sleeping in the chair. He is doing well. He knows he is going home today. I wrote prescriptions for him. I went over his medications with him. PHYSICAL EXAMINATION: VITAL SIGNS: He has 97.8 temp, 78 pulse, 124/77 blood pressure, 20 respiratory rate, and 96% O2 sat room air. HEAD: Atraumatic, normocephalic. HEART: Regular rate. LUNGS: Decreased breath sounds, but clear. ABDOMEN: Morbidly obese, nontender. Positive bowel sounds. No guarding. No rebound. No CVA tenderness. EXTREMITIES: His left foot is bandaged. Big toe cellulitis and osteo on MRI. MEDICATIONS: He is going to go home on Glucophage 1000 twice a day, Januvia 50 twice a day, Levemir 45 units subcu daily. He will be on Cipro 500 twice a day for [address] Rocha, the Infectious Disease doctor, and Maxipime 1 gm IV q.12 for 6 weeks. He has to be home today before 10. nurse is coming to start the IV antibiotics. LABORATORY DATA: He has 12,000 white count, 12.1 hemoglobin, and 284 platelets. Sodium 138, potassium 3.9, BUN 10, creatinine 0.7. Sugar is 88. Calcium is 9. Total bilirubin is 1, AST is 43, ALT is 31, alkaline phosphatase is 65. ASSESSMENT AND PLAN: He is doing well. He is going to home today for 6 weeks of IV antibiotics, 4 weeks of p.o. antibiotics, and medicines for his diabetes. He understands he has to loose weight. He will see me on the outpatient. I will do house calls on him. This is a discharge summary on Keenan Gallegos for osteomyelitis of the left big toe. Also he tells me he has never used heroin or iv drugs and doesnt know how the hx got on his chart. Juanpablo Banks DO [facility]ITALAngel[facility]
--- NOTE | 2017-10-17 08:32 | PN ---
DATE: 10/15/2017 SUBJECTIVE: A 47-year-old male seen at bedside for chronic left heel ulceration and left hallux ulceration with OM of the phalanx. The patient is resting comfortably at bedside and is feeling much better. He is set for discharge today. LABORATORY FINDINGS: Reveal white count of 9.9, hemoglobin of 12.2, hematocrit of 38.7, and platelet count of 311. MRI taken of the left foot reveals soft tissue swelling of the ankle and dorsal foot, which is indicative of cellulitis. There is edema identified within the distal first phalanx suspicious for osteomyelitis. OBJECTIVE: Weakly palpable pedal pulses noted bilaterally. There is noted to be edema in the left foot and ankle. Protective sensation is grossly diminished bilaterally using 5.07 g monofilament wire testing. There is also full thickness ulceration located on the left foot, some located at the heel and the other on the left distal hallux. Both of the ulcerations are primarily granular with serous drainage, no purulence. There is no pain upon palpation of either of the wounds. There are no signs of underlying abscess formation. ASSESSMENT: Full thickness diabetic left heel ulceration and left hallux ulceration with osteomyelitis of the phalanx. PLAN: The patient was seen and evaluated. The wounds were cleansed with normal sterile saline. The plan was in place to perform IV antibiotics as an outpatient for 4-6 weeks. The patient understands that he needs to follow up with Dr. Rocha, Infectious Disease doctor. The patient will continue going to the wound center weekly. His wounds are dressed with Optifoam and a dry sterile dressing. Hugo Mauricio DPM
== END 2017-10-15 11:05 | disposition home or self-care (01) | DRG 638 ==
LOC: ED 16:47 → ERH 21:52 → 3RNO 10-13 01:19
PROVIDERS: ADMIT Family Medicine; ATTEND Family Medicine
PROC: 02HV33Z Insertion of Infusion Device into Superior Vena Cava, Percutaneous Approach (ICD-10-PCS; principal; 2017-10-14)
PROC: B548ZZA Ultrasonography of Superior Vena Cava, Guidance (ICD-10-PCS; 2017-10-14)
DX: E11.69 Type 2 diabetes mellitus with other specified complication (principal); M86.9 Osteomyelitis, unspecified; E11.621 Type 2 diabetes mellitus with foot ulcer; L97.429 Non-pressure chronic ulcer of left heel and midfoot with unspecified severity; L03.032 Cellulitis of left toe; L97.529 Non-pressure chronic ulcer of other part of left foot with unspecified severity

== ENCOUNTER 2019-01-19 06:19 | Day surgery (SDC) | payer BC ==
[2019-01-15 14:54] VITALS: BMI 56.4
[2019-01-19] MEDS ORDERED: Propofol 10 mg/ml Inj (20 ML) ONE (08:00)
[2019-01-19] MEDS ORDERED: Sodium Chloride 0.9% 1,000 ML IV SCH (08:45)
[2019-01-19 10:14] VITALS: BP 121/80; PULSE 90; RESP 18; TEMP 97.6; O2SAT 96
== END 2019-01-19 10:05 | disposition home or self-care (01) ==
LOC: ENDO 06:19
PROVIDERS: ATTEND Internal Medicine Gastroenterology
DX: Z12.11 Encounter for screening for malignant neoplasm of colon (principal); Z80.0 Family history of malignant neoplasm of digestive organs; E11.9 Type 2 diabetes mellitus without complications; K64.1 Second degree hemorrhoids; E66.9 Obesity, unspecified; Z68.43 Body mass index [BMI] 50.0-59.9, adult
CPT/HCPCS: 45378; 82948; J2001; J2704; J3010; J7030; J7040